=== PATIENT | male | born 1965 | race Caucasian/White ===

== ENCOUNTER 2016-08-31 19:54 | Emergency (ER) | payer MEDICAID ==
[2016-08-31 20:10] VITALS: BP 118/81
--- NOTE | 2016-08-31 20:14 | EDM.PDOC ---
ED HPI GENERAL MEDICAL PROBLEM - General Chief Complaint: Upper Extremity Injury/Pain Stated Complaint: LUMP IN ARM Time Seen by Provider: 08/31/16 20:00 Source of Information: Reports: Patient, Old Records History Limitations: Reports: No Limitations - History of Present Illness INITIAL COMMENTS - FREE TEXT/NARRATIVE: 51 yo male on Plavix presents with tender lump on his right forearm. Last night the lump was more prominent, today it has flattened out quite a bit. He does not recall injuring the area. Dr. Brady is his primary. Both arms are heavily tattooed. 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 (see below) (none) - Related Data Allergies Allergy/AdvReac Type Severity Reaction Status Date / Time No Known Allergies Allergy Verified 12/16/15 01:49 Home Meds: Home Meds Clopidogrel [Plavix] 75 mg PO DAILY 05/18/15 [History] Cyclobenzaprine [Flexeril] 10 mg PO TID PRN 05/18/15 [History] Gabapentin [Neurontin] 600 mg PO DAY 05/18/15 [History] Metoprolol Tartrate [Metoprolol Tartrate] 12.5 mg PO DAILY 05/18/15 [History] atorvaSTATin [Lipitor] 80 mg PO BEDTIME 05/18/15 [History] Pantoprazole [ProTONIX] 40 mg PO DAILY 06/16/15 [History] Hydrocodone/Acetaminophen [Vicodin 5-300 mg Tablet] 1 each PO Q4HR PRN #16 tablet 07/28/15 [Rx] Past Medical History Cardiovascular History: Reports: CAD, High Cholesterol, Hypertension, [place] Other Cardiovascular History: Heart attack in September 2014; two stents placed Musculoskeletal History: Reports: Back Pain, Chronic, Other (See Below) Other Musculoskeletal History: pt states pinched nerve in neck, states hx of injections to help with pain - Past Surgical History Cardiovascular Surgical History: Reports: Coronary Artery Stent Social & Family History - Family History Family Medical History: Unobtainable - Tobacco Use Smoking Status *Q: Current Every Day Smoker Years of Tobacco use: 30 Packs/Tins Daily: 1 Used Tobacco, but Quit: No Second Hand Smoke Exposure: Yes - Recreational Drug Use Recreational Drug Use: No Review of Systems - Review of Systems Review Of Systems: See Below Constitutional: Reports: No Symptoms Musculoskeletal: Reports: No Symptoms Skin: Reports: Lumps (Tender lump R forearm) ED EXAM, GENERAL - Physical Exam Exam: See Below Exam Limited By: No Limitations General Appearance: Alert, WD/WN, No Apparent Distress Skin Exam: Warm, Dry, Intact, No Rash, Other (Arm is heavily tattooed hiding any potential bruising or erythema. There is slightly swollen area to the mid anterior R forearm that is mildly tender with palpation. It is not warm to touch. No other lumps noted in the area. ) Lymphatic: No Adenopathy Departure - Departure Time of Disposition: 20:14 Disposition: Home, Self-Care 01 Condition: Good Clinical Impression: Injury of vein at forearm level Qualifiers: Encounter type: initial encounter Laterality: right Qualified Code(s): S55.201A - Unspecified injury of vein at forearm level, right arm, initial encounter - Discharge Information Referrals: Alexandre Brady MD [Primary Care Provider] - Additional Instructions: Moist heat to area. Recheck with your provider the end of the week if not better. Acetaminophen as needed for pain relief.
== END 2016-08-31 20:15 | disposition home or self-care (01) ==
LOC: FB.ED 19:54
DX: S55.20 Unspecified injury of vein at forearm level (principal); E78.00 Pure hypercholesterolemia, unspecified; I10 Essential (primary) hypertension; I25.2 Old myocardial infarction; F17.210 Nicotine dependence, cigarettes, uncomplicated; Z95.5 Presence of coronary angioplasty implant and graft; Z79.899 Other long term (current) drug therapy; X58.XXXA Exposure to other specified factors, initial encounter
CPT/HCPCS: 99283

== ENCOUNTER 2016-12-11 11:09 | Emergency (ER) | payer MEDICAID ==
[2016-12-11] MEDS ORDERED: Aspirin 81 MG Tab.Chew PO ONE (11:17)
[2016-12-11] MEDS ORDERED: Ketorolac 30 MG/ML SDV IM ONE (11:20)
--- NOTE | 2016-12-11 11:27 | EDM.PDOC ---
ED HPI GENERAL MEDICAL PROBLEM - General Chief Complaint: Chest Pain Stated Complaint: RT ARM AND JAW PAIN Time Seen by Provider: 12/11/16 11:15 Source of Information: Reports: Patient, Old Records History Limitations: Reports: No Limitations - History of Present Illness INITIAL COMMENTS - FREE TEXT/NARRATIVE: 51 yo male 1 ppd smoker with a pHx of CAD presents with R shoulder pain x 4 days. Gets relief with certain positions of that shoulder. Denies injury. Feels different from his heart attack. Family called the clinic and were told he should come to the ER. Not taking anything other than his usual meds for this pain. Describes pain like a burning pain, like a match it held to skin. No neck pain or limitation of ROM. 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 (see below) (none) Right Chest Pain Score (Numeric/FACES): 9 - Related Data Allergies Allergy/AdvReac Type Severity Reaction Status Date / Time No Known Allergies Allergy Verified 12/11/16 11:18 Home Meds: Home Meds Clopidogrel [Plavix] 75 mg PO DAILY 05/18/15 [History] Cyclobenzaprine [Flexeril] 10 mg PO TID PRN 05/18/15 [History] Gabapentin [Neurontin] 300 mg PO TID 05/18/15 [History] Metoprolol Tartrate [Metoprolol Tartrate] 12.5 mg PO DAILY 05/18/15 [History] atorvaSTATin [Lipitor] 80 mg PO BEDTIME 05/18/15 [History] Pantoprazole [ProTONIX] 40 mg PO DAILY 06/16/15 [History] Hydrocodone/Acetaminophen [Hydrocodon-Acetaminophen 5-325] 1 each PO BID PRN 04/18 [History] Aspirin 81 mg PO DAILY 12/11/16 [History] Past Medical History Cardiovascular History: Reports: CAD, High Cholesterol, Hypertension, [place] Other Cardiovascular History: Heart attack in September 2014; two stents placed Musculoskeletal History: Reports: Back Pain, Chronic, Other (See Below) Other Musculoskeletal History: pt states pinched nerve in neck, states hx of injections to help with pain - Past Surgical History Cardiovascular Surgical History: Reports: Coronary Artery Stent Social & Family History - Family History Family Medical History: Unobtainable - Tobacco Use Smoking Status *Q: Current Every Day Smoker Years of Tobacco use: 30 Packs/Tins Daily: 1 Used Tobacco, but Quit: No Second Hand Smoke Exposure: Yes - Recreational Drug Use Recreational Drug Use: No Review of Systems - Review of Systems Review Of Systems: See Below Constitutional: Reports: No Symptoms Nose: Reports: No Symptoms Mouth/Throat: Reports: No Symptoms Respiratory: Reports: No Symptoms Cardiovascular: Reports: No Symptoms GI/Abdominal: Reports: No Symptoms Genitourinary: Reports: No Symptoms Musculoskeletal: Reports: Joint Pain (R shoulder) Skin: Reports: No Symptoms Neurological: Reports: No Symptoms ED EXAM, GENERAL - Physical Exam Exam: See Below Exam Limited By: No Limitations General Appearance: Alert, WD/WN, No Apparent Distress Eye Exam: Bilateral Eye: Normal Inspection Ears: Normal External Exam, Normal Canal, Hearing Grossly Normal Ear Exam: Bilateral Ear: Auricle Normal, Canal Normal Nose: Normal Inspection, Normal Mucosa, No Blood Throat/Mouth: Normal Inspection, Normal Lips, Normal Oropharynx, Normal Voice, No Airway Compromise, Other (edentulous) Head: Atraumatic, Normocephalic Neck: Normal Inspection Respiratory/Chest: No Respiratory Distress, Lungs Clear, Normal Breath Sounds, No Accessory Muscle Use Cardiovascular: Regular Rate, Rhythm, No Edema GI/Abdominal: Normal Bowel Sounds, Soft, Non-Tender, No Distention Back Exam: Normal Inspection. No: CVA Tenderness (R), CVA Tenderness (L) Extremities: Normal Inspection, Normal Range of Motion, Non-Tender, No Pedal Edema Neurological: Alert, Oriented, CN II-XII Intact, Normal Cognition, Normal Gait, No Motor/Sensory Deficits Psychiatric: Normal Affect, Normal Mood Skin Exam: Warm, Dry, Intact, Normal Color, No Rash Lymphatic: No Adenopathy EKG INTERPRETATION EKG Date: 12/11/16 Time: 11:20 Rhythm: NSR Rate (Beats/Min): 70 [place]: Normal P-Wave: Present QRS: Normal ST-T: Normal QT: Normal Comparison: No Change EKG Interpretation Comments: L axis deviation Course - Vital Signs Last Recorded V/S: Last Vital Signs Temp 37.3 C 12/11/16 11:20 Pulse 81 12/11/16 11:20 Resp 16 12/11/16 12:34 BP 126/76 12/11/16 12:34 Pulse Ox 99 12/11/16 12:34 - Orders/Labs/Meds Orders: Active Orders 24 hr Category Date Time Status Cardiac Monitoring [RC] .As Directed Care 12/11/16 11:13 Active Shoulder Comp Rt [CR] Stat Exams 12/11/16 11:25 Taken EKG 12 Lead [EK] Routine Ther 12/11/16 11:13 Ordered Labs: Laboratory Tests 12/11/16 Range/Units 12:00 Troponin I < 0.01 L (0.02-0.06) NG/ML Meds: Medications Discontinued Medications Generic Name Dose Route Start Last Admin Trade Name Luca PRN Reason Stop Dose Admin Aspirin 324 mg 12/11/16 11:17 12/11/16 11:18 Aspirin PO 12/11/16 11:18 324 mg ONETIME ONE Administration Gabapentin 600 mg 12/11/16 11:56 12/11/16 12:33 Neurontin PO 12/11/16 11:57 600 mg NOW STA Administration Ketorolac Tromethamine 30 mg 12/11/16 11:20 12/11/16 11:28 Toradol IM 12/11/16 11:21 30 mg ONETIME ONE Administration - Radiology Interpretation Free Text/Narrative:: R shoulder [id number] Departure - Departure Time of Disposition: 12:50 Disposition: Home, Self-Care 01 Condition: Fair Clinical Impression: Neuropathic pain of upper extremity - Discharge Information Referrals: Alexandre Brady MD [Primary Care Provider] - Forms: ED Department Discharge - My Orders Last 24 Hours: My Active Orders 12/11/16 11:13 Cardiac Monitoring [RC] .As Directed EKG 12 Lead [EK] Routine 12/11/16 11:25 Shoulder Comp Rt [CR] Stat - Assessment/Plan Last 24 Hours: My Active Orders 12/11/16 11:13 Cardiac Monitoring [RC] .As Directed EKG 12 Lead [EK] Routine 12/11/16 11:25 Shoulder Comp Rt [CR] Stat
[2016-12-11] MEDS ORDERED: Gabapentin 600 MG Tab PO STA (11:56)
[2016-12-11 12:34] VITALS: BP 126/76
--- NOTE | 2016-12-11 15:02 | CR ---
INDICATION: Pain x4 days. No history of injury. RIGHT SHOULDER: Five images of the right shoulder in 4 projections revealed very minimal degenerative change at the AC and glenohumeral joints. The glenohumeral joint space appears to be well maintained. No evidence of a fracture or dislocation was identified. IMPRESSION: Very minimal degenerative change. Findings do not appear significant for age. If soft tissue injury or soft tissue abnormality is suspected clinically, MRI may be helpful. MTDD
== END 2016-12-11 12:55 | disposition home or self-care (01) ==
LOC: FB.ED 11:09
DX: M79.2 Neuralgia and neuritis, unspecified (principal); I25.10 Atherosclerotic heart disease of native coronary artery without angina pectoris; E78.00 Pure hypercholesterolemia, unspecified; I10 Essential (primary) hypertension; I25.2 Old myocardial infarction; F17.210 Nicotine dependence, cigarettes, uncomplicated
CPT/HCPCS: 36415; 73030; 84484; 93005; 96374; 99285; A9270; J1885; 96372

== ENCOUNTER 2017-01-10 01:22 | Emergency (ER) | payer MEDICAID ==
--- NOTE | 2017-01-10 01:39 | EDM.PDOC ---
ED HPI GENERAL MEDICAL PROBLEM - General Chief Complaint: Neck Problem Stated Complaint: BURNING NECK/ARM PAIN Time Seen by Provider: 01/10/17 01:30 Source of Information: Reports: Patient, Old Records History Limitations: Reports: No Limitations - History of Present Illness INITIAL COMMENTS - FREE TEXT/NARRATIVE: Frank comes to [facility] ED with relapse of chronic neck pain with radiation into the RUE. Pain in lancinating, associated with some tingling in the R hand, aggravated by lateral bending of the neck. He did have an evaluation including MRI of cervical spine about 2 years ago, and was advised to see a neurosurgeon, but has not proceeded with this guidance. - Related Data Allergies Allergy/AdvReac Type Severity Reaction Status Date / Time No Known Allergies Allergy Verified 12/11/16 11:18 Home Meds: Home Meds Clopidogrel [Plavix] 75 mg PO DAILY 05/18/15 [History] Cyclobenzaprine [Flexeril] 10 mg PO TID PRN 05/18/15 [History] Gabapentin [Neurontin] 300 mg PO TID 05/18/15 [History] Metoprolol Tartrate [Metoprolol Tartrate] 12.5 mg PO DAILY 05/18/15 [History] atorvaSTATin [Lipitor] 80 mg PO BEDTIME 05/18/15 [History] Pantoprazole [ProTONIX] 40 mg PO DAILY 06/16/15 [History] Hydrocodone/Acetaminophen [Hydrocodon-Acetaminophen 5-325] 1 each PO BID PRN 04/18 [History] Acetaminophen/HYDROcodone [[place] 325-5 MG] 1 - 2 tab PO Q6H PRN #20 tab [Rx] Aspirin 81 mg PO DAILY 12/11/16 [History] Gabapentin [Neurontin] 600 mg PO TID PRN #30 tab 12/11/16 [Rx] Past Medical History Cardiovascular History: Reports: CAD, High Cholesterol, Hypertension, [place] Other Cardiovascular History: Heart attack in September 2014; two stents placed Musculoskeletal History: Reports: Back Pain, Chronic, Other (See Below) Other Musculoskeletal History: pt states pinched nerve in neck, states hx of injections to help with pain - Past Surgical History Cardiovascular Surgical History: Reports: Coronary Artery Stent Social & Family History - Family History Family Medical History: Unobtainable - Tobacco Use Smoking Status *Q: Current Every Day Smoker Years of Tobacco use: 30 Packs/Tins Daily: 1 Used Tobacco, but Quit: No Second Hand Smoke Exposure: Yes - Caffeine Use Caffeine Use: Reports: Soda - Recreational Drug Use Recreational Drug Use: No ED ROS GENERAL - Review of Systems Review Of Systems: ROS reveals no pertinent complaints other than HPI. ED EXAM, GENERAL - Physical Exam Exam: See Below Exam Limited By: No Limitations General Appearance: Alert, WD/WN, Moderate Distress Eye Exam: Bilateral Eye: Normal Inspection, PERRL Ears: Normal External Exam Nose: Normal Inspection Throat/Mouth: Normal Inspection, Normal Voice Head: Normocephalic Neck: Normal Inspection, Limited Range of Motion, Tender Lateral (right posterior neck) Respiratory/Chest: Lungs Clear, No Accessory Muscle Use Cardiovascular: Regular Rate, Rhythm Back Exam: Normal Inspection Extremities: Normal Inspection, Limited Range of Motion (RUE) Neurological: Alert, Oriented, CN II-XII Intact, Normal Gait, Sensory/Motor Deficit (C5-6 distribution on R) Psychiatric: Normal Affect, Anxious Skin Exam: Warm, Dry Lymphatic: No Adenopathy Course - Vital Signs Text/Narrative:: Following assession at the [facility] ED, Frank was administered Toradol 60 mg IM for pain relief. Departure - Departure Time of Disposition: 01:45 Disposition: Home, Self-Care 01 Condition: Fair Clinical Impression: Neuropathic pain of upper extremity - Discharge Information Forms: ED Department Discharge - Problem List & Annotations (1) Neuropathic pain of upper extremity SNOMED Code(s): 923426324 Code(s): G56.90 - UNSPECIFIED MONONEUROPATHY OF UNSPECIFIED UPPER LIMB Status: Acute Annotation/Comment:: Follow up with PCP or Neurosurgeon regarding further management. - Problem List Review Problem List Initiated/Reviewed/Updated: Yes - Assessment/Plan Plan: Follow up with PCP.
[2017-01-10] MEDS ORDERED: Ketorolac 60 MG/2 ML SDV ONE (01:41)
[2017-01-10] MEDS ORDERED: Ketorolac 60 MG/2 ML SDV IM ONE (01:42)
[2017-01-12 11:35] VITALS: BP 135/97
== END 2017-01-10 02:03 | disposition home or self-care (01) ==
LOC: FB.ED 01:22
DX: G56.91 Unspecified mononeuropathy of right upper limb (principal); F17.210 Nicotine dependence, cigarettes, uncomplicated; I10 Essential (primary) hypertension; E78.5 Hyperlipidemia, unspecified; Z79.82 Long term (current) use of aspirin
CPT/HCPCS: 96372; 99282; J1885

== ENCOUNTER 2018-12-18 15:11 | Emergency (ER) | payer SELFPAY ==
--- NOTE | 2018-12-18 15:18 | EDM.PDOC ---
ED HPI GENERAL MEDICAL PROBLEM - General Stated Complaint: CHEST PAIN Time Seen by Provider: 12/18/18 15:17 Source of Information: Reports: Patient History Limitations: Reports: No Limitations - History of Present Illness INITIAL COMMENTS - FREE TEXT/NARRATIVE: 53-year-old male with previous VT and angioplasty with stents who reports onset of a sharp pain in his left chest on Thursday it seemed to come and go. It lasted about 5 minutes when he came and seemed to be worse with palpation and with deep breath. He also has been having some back pain which is chronic but seems to be a little worse than usual for him. Beginning at about 1 PM today he developed a burning across his entire chest that seemed to cause some tightness into his neck and into his right shoulder. He had some mild nausea associated with this but no vomiting. He still has the reproducible pain in his left chest with palpation, movement and deep breath but the pain in his chest that is a burning pain is new and does not seem to be made better or worse by anything. He has been eating and drinking normally. He apparently was at work came to the walk-in clinic to be evaluated and was sent here for further evaluation he does feel somewhat short of breath now. He has had no cough. He has had no leg swelling. The burning pain in his chest as rated by him as a 5-6/10. The back pain is somewhat spasm-like and goes to an 8-9/10. He does report that he has not been taking any of his medications. "Because I can't afford them." There are no other associated signs or symptoms. There are no other modifying factors. Onset: Other (Onset of sharp chest pain on Thursday of last week that has been intermittent. Onset of burning pain across his entire chest at 1 PM today that has been steady and constant) Location: Reports: Neck, Chest, Back Quality: Reports: Burning, Sharp, Other (Tightness) Severity: Moderate Improves with: Reports: None Worsens with: Reports: None (Except as above) Context: Reports: Other (As above) Associated Symptoms: Reports: Chest Pain, Shortness of Breath, Weakness, Other ( Dizziness. 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) Chest Pain Score (Numeric/FACES): 1 Back Pain Score (Numeric/FACES): 1 - Related Data Allergies Allergy/AdvReac Type Severity Reaction Status Date / Time No Known Allergies Allergy Verified 12/18/18 17:06 Home Meds: Home Meds Clopidogrel [Plavix] 75 mg PO DAILY 05/18/15 [History] Cyclobenzaprine [Flexeril] 10 mg PO TID PRN 05/18/15 [History] Gabapentin [Neurontin] 300 mg PO TID 05/18/15 [History] Metoprolol Tartrate 25 mg PO DAILY 05/18/15 [History] atorvaSTATin [Lipitor] 40 mg PO BEDTIME 05/18/15 [History] Pantoprazole [ProTONIX] 40 mg PO DAILY 06/16/15 [History] Acetaminophen/HYDROcodone [[place] 325-5 MG] 1 - 2 tab PO Q6H PRN #20 tab [Rx] Aspirin 81 mg PO DAILY 12/11/16 [History] Acetaminophen [Pain & Fever] 1 - 2 tab PO QID PRN 01/12/17 [History] Nicotine [Nicotine Patch] 1 patch TD DAILY 07/14/17 [History] Triamcinolone Acetonide [Kenalog 0.1% Crm] 1 applic TOP TID PRN 07/14/17 [ History] traMADol [Ultram] 50 mg PO Q4H PRN 07/14/17 [History] Past Medical History Cardiovascular History: Reports: CAD, High Cholesterol, Hypertension, VT Other Cardiovascular History: Heart attack in September 2014; two stents placed Musculoskeletal History: Reports: Back Pain, Chronic, Other (See Below) Other Musculoskeletal History: pt states pinched nerve in neck, states hx of injections to help with pain Psychiatric History: Reports: Addiction Endocrine/Metabolic History: Reports: None - Past Surgical History Cardiovascular Surgical History: Reports: Coronary Artery Stent (Stents 3) Musculoskeletal Surgical History: Reports: Shoulder Surgery (For removal of cyst on right shoulder) Social & Family History - Tobacco Use Smoking Status *Q: Current Every Day Smoker - Caffeine Use Caffeine Use: Reports: Soda - Alcohol Use Alcohol Use History: Yes Alcohol Use in Last Twelve Months: No Alcohol Use Comment: 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 - Recreational Drug Use Recreational Drug Use: No - Living Situation & Occupation Occupation: Employed (Works at [employer]) ED ROS GENERAL - Review of Systems Review Of Systems: See Below Constitutional: Reports: No Symptoms HEENT: Reports: No Symptoms Respiratory: Reports: Shortness of Breath (Feels somewhat short of breath), Cough (Chronic cough) Cardiovascular: Reports: Chest Pain (As described above) GI/Abdominal: Reports: Nausea. Denies: Vomiting : Reports: No Symptoms Musculoskeletal: Reports: Neck Pain Skin: Reports: No Symptoms Neurological: Reports: No Symptoms Hematologic/Lymphatic: Reports: No Symptoms Immunologic: Reports: No Symptoms ED EXAM, GENERAL - Physical Exam Exam: See Below Exam Limited By: No Limitations General Appearance: Alert, WD/WN, Moderate Distress Eye Exam: Bilateral Eye: EOMI, Normal Inspection, PERRL Ears: Normal External Exam, Hearing Grossly Normal Ear Exam: Bilateral Ear: Auricle Normal Nose: Normal Inspection, Normal Mucosa, No Blood Throat/Mouth: Normal Inspection, Normal Oropharynx, Normal Voice, No Airway Compromise Head: Atraumatic, Normocephalic Neck: Normal Inspection, Supple, Non-Tender, Full Range of Motion Respiratory/Chest: No Respiratory Distress, Lungs Clear, Normal Breath Sounds, No Accessory Muscle Use, Other (Tenderness of her left parasternal chest. No crepitus. Redness.) Cardiovascular: Normal Peripheral Pulses, Regular Rate, Rhythm, No JVD Peripheral Pulses: 2+: Radial (L), Radial (R) GI/Abdominal: Normal Bowel Sounds, Soft, Non-Tender, No Organomegaly, No Mass Back Exam: Normal Inspection, Full Range of Motion Extremities: Normal Inspection, Normal Range of Motion, Non-Tender, No Pedal Edema, Normal Capillary Refill Neurological: Alert, Oriented, CN II-XII Intact, No Motor/Sensory Deficits Skin Exam: Warm, Dry, Intact, Normal Color, No Rash EKG INTERPRETATION EKG Date: 12/18/18 Time: 15:11 Rhythm: NSR Rate (Beats/Min): 68 [place]: LAD-Left [place] Deviation (LAFB) P-Wave: Present QRS: Normal ST-T: Normal QT: Normal Comparison: No Change (No change from EKG performed on 12/11/2016.) EKG Interpretation Comments: Repeat EKG on 12/18/2018 at 5:43 PM: Normal sinus rhythm with a left anterior fascicular block and a rate of 59. He does have T-wave flattening in V4 through V6 and all of his inferior leads which is different than the previous EKG performed today. Course - Vital Signs Last Recorded V/S: Last Vital Signs Temp 36.6 C 12/18/18 15:13 Pulse 59 L 12/18/18 15:13 Resp 18 12/18/18 15:13 BP 119/94 H 12/18/18 20:12 Pulse Ox 96 12/18/18 15:13 - Orders/Labs/Meds Orders: Active Orders 24 hr Category Date Time Status EKG Documentation Completion [RC] ASDIRECTED Care 12/18/18 15:43 Active EKG Documentation Completion [RC] ASDIRECTED Care 12/18/18 17:44 Active Ang Chest [CT] Stat Exams 12/18/18 16:58 Taken Chest 1V Frontal [CR] Stat Exams 12/18/18 15:43 Taken Heparin Sodium/0.45% NaCl [Heparin 25,000 Units in 1/2 Med 12/18/18 19:00 Active NS 500 ML] 500 ml IV ASDIRECTED Sodium Chloride 0.9% [Normal Saline] 1,000 ml Med 12/18/18 15:45 Active IV ASDIRECTED Sodium Chloride 0.9% [Saline Flush] Med 12/18/18 15:43 Active 10 ml FLUSH ASDIRECTED PRN Peripheral IV Insertion Adult [OM.PC] Routine Oth 12/18/18 15:43 Ordered EKG 12 Lead [EK] Routine Ther 12/18/18 15:42 Ordered EKG 12 Lead [EK] Routine Ther 12/18/18 17:44 Ordered Medication Orders Sodium Chloride (Normal Saline) 1,000 mls @ 100 mls/hr IV ASDIRECTED [facility] Last Admin: 12/18/18 16:05 Dose: 100 mls/hr Heparin Sodium/Sodium Chloride (Heparin 25,000 Units In 1/2 Ns 500 Ml) 500 mls @ 16 mls/hr IV ASDIRECTED [facility] Last Admin: 12/18/18 19:28 Dose: 16 mls/hr Sodium Chloride (Saline Flush) 10 ml FLUSH ASDIRECTED PRN PRN Reason: Keep Vein Open Labs: Laboratory Tests 12/18/18 12/18/18 12/18/18 Range/Units 15:55 15:55 15:55 WBC 7.9 (4.5-12.0) X10-3/uL RBC 4.10 L (4.30-5.75) x10(6)uL Hgb 12.8 L (13.5-17.8) g/dL Hct 36.8 (30.0-51.3) % MCV 89.9 (80-96) fL MCH 31.2 (27.7-33.6) pg MCHC 34.7 (32.2-35.4) g/dL RDW 12.8 (11.5-15.5) % Plt Count 326 (125-369) X10(3)uL MPV 7.4 (7.4-10.4) fL Neut % (Auto) 49.9 (46-82) % Lymph % (Auto) 37.4 H (13-37) % [place] % (Auto) 9.4 (4-12) % Eos % (Auto) 3 (1.0-5.0) % Baso % (Auto) 1 (0-2) % Neut # (Auto) 4.0 (1.6-8.3) # Lymph # (Auto) 3.0 (0.6-5.0) # [place] # (Auto) 0.7 (0.0-1.3) # Eos # (Auto) 0.2 (0.0-0.8) # Baso # (Auto) 0.0 (0.0-0.2) # PT 9.4 (8.7-11.1) INR 0.97 (0.89-1.13) APTT 25.4 (24.4-33.2) SECONDS D-Dimer, Quantitative 0.77 H (0.0-0.59) mg/LFEU Sodium 141 (135-145) mmol/L Potassium 3.3 L (3.5-5.3) mmol/L Chloride 105 (100-110) mmol/L Carbon Dioxide 27 (21-32) mmol/L BUN 3 L (7-18) mg/dL Creatinine 0.9 (0.70-1.30) mg/dL Est Cr Clr Drug Dosing TNP Estimated GFR (MDRD) > 60 (>60) BUN/Creatinine Ratio 3.3 L (9-20) Glucose 88 (80-116) mg/dL Calcium 8.3 L (8.6-10.2) mg/dL Magnesium (1.8-2.5) mg/dL Total Bilirubin 0.3 (0.1-1.3) mg/dL AST 15 (5-25) IU/L ALT 15 (12-36) U/L Alkaline Phosphatase 59 (56-112) IU/L Troponin I (<0.017-0.056) ng/mL Total Protein 6.3 (6.0-8.0) g/dL Albumin 3.2 L (3.5-5.2) g/dL Globulin 3.1 g/dL Albumin/Globulin Ratio 1.0 12/18/18 12/18/18 Range/Units 15:55 15:55 WBC (4.5-12.0) X10-3/uL RBC (4.30-5.75) x10(6)uL Hgb (13.5-17.8) g/dL Hct (30.0-51.3) % MCV (80-96) fL MCH (27.7-33.6) pg MCHC (32.2-35.4) g/dL RDW (11.5-15.5) % Plt Count (125-369) X10(3)uL MPV (7.4-10.4) fL Neut % (Auto) (46-82) % Lymph % (Auto) (13-37) % [place] % (Auto) (4-12) % Eos % (Auto) (1.0-5.0) % Baso % (Auto) (0-2) % Neut # (Auto) (1.6-8.3) # Lymph # (Auto) (0.6-5.0) # [place] # (Auto) (0.0-1.3) # Eos # (Auto) (0.0-0.8) # Baso # (Auto) (0.0-0.2) # PT (8.7-11.1) INR (0.89-1.13) APTT (24.4-33.2) SECONDS D-Dimer, Quantitative (0.0-0.59) mg/LFEU Sodium (135-145) mmol/L Potassium (3.5-5.3) mmol/L Chloride (100-110) mmol/L Carbon Dioxide (21-32) mmol/L BUN (7-18) mg/dL Creatinine (0.70-1.30) mg/dL Est Cr Clr Drug Dosing Estimated GFR (MDRD) (>60) BUN/Creatinine Ratio (9-20) Glucose (80-116) mg/dL Calcium (8.6-10.2) mg/dL Magnesium 2.0 (1.8-2.5) mg/dL Total Bilirubin (0.1-1.3) mg/dL AST (5-25) IU/L ALT (12-36) U/L Alkaline Phosphatase (56-112) IU/L Troponin I < 0.017 L (<0.017-0.056) ng/mL Total Protein (6.0-8.0) g/dL Albumin (3.5-5.2) g/dL Globulin g/dL Albumin/Globulin Ratio Meds: Medications Generic Name Dose Route Start Last Admin Trade Name [place] PRN Reason Stop Dose Admin Sodium Chloride 1,000 mls @ 100 mls/hr 12/18/18 15:45 12/18/18 16:05 Normal Saline IV 100 mls/hr ASDIRECTED RENAY Administration Heparin Sodium/Sodium Chloride 500 mls @ 16 mls/hr 12/18/18 19:00 12/18/18 19 :28 Heparin 25,000 Units In 1/2 Ns 500 Ml IV 16 mls/hr ASDIRECTED RENAY Administration Sodium Chloride 10 ml 12/18/18 15:43 Saline Flush FLUSH ASDIRECTED PRN Keep Vein Open Discontinued Medications Generic Name Dose Route Start Last Admin Trade Name Luca PRN Reason Stop Dose Admin Hydrocodone Bitart/Acetaminophen 2 tab 12/18/18 17:40 12/18/18 18:45 [place] 325-5 Mg PO 12/18/18 17:41 2 tab ONETIME ONE Administration Aspirin 324 mg 12/18/18 15:44 12/18/18 15:45 Aspirin PO 12/18/18 15:45 324 mg ONETIME ONE Administration Heparin Sodium (Porcine) 4,000 units 12/18/18 19:01 12/18/18 19:27 Heparin Sodium IVPUSH 12/18/18 19:02 4,000 units ONETIME ONE Administration Iopamidol 100 ml 12/18/18 17:08 12/18/18 17:30 Isovue-370 (76%) IV 12/18/18 17:09 70 ml . DIRECTED ONE Administration Ketorolac Tromethamine 30 mg 12/18/18 15:45 12/18/18 16:03 Toradol IVPUSH 12/18/18 15:46 30 mg ONETIME ONE Administration Nitroglycerin 0.4 mg 12/18/18 15:44 12/18/18 17:47 Nitrostat SL 0.4 mg Q5M PRN Administration Chest Pain Nitroglycerin 1 gm 12/18/18 20:05 12/18/18 20:13 Nitro-Bid 2% TOP 12/18/18 20:06 1 gm ONETIME ONE Administration Nitroglycerin 0.4 mg 12/18/18 20:05 12/18/18 20:12 Nitrostat SL 12/18/18 20:06 0.4 mg ONETIME ONE Administration Potassium Chloride 40 meq 12/18/18 17:00 Klor-Con PO ASDIRECTED RENAY Potassium Chloride Confirm 12/18/18 19:00 12/18/18 19:30 Klor-Con M20 Administered 12/18/18 19:01 Not Given Dose 40 meq .ROUTE .STK-MED ONE Potassium Chloride 40 meq 12/18/18 19:07 12/18/18 19:31 Klor-Con M20 PO 12/18/18 19:08 40 meq ONETIME ONE Administration - Radiology Interpretation Free Text/Narrative:: Portable chest x-ray shows no acute disease. CTA of chest showed no evidence of pulmonary embolus. There was subsegmental atelectasis or scarring in the right lower lobe base and right middle lobe medial segment. This was per the [facility] radiologist. - Re-Assessments/Exams Free Text/Narrative Re-Assessment/Exam: 12/18/18 16:23: Patient's burning chest pain completely resolved after 2 sublingual nitroglycerin. He is vitally stable. 12/18/18 16:55: Patient's d-dimer is 0.77 which is slightly elevated. Secondary to his sharp chest pain and the elevated d-dimer, I am sending him for a CTA of his chest. He has no more burning in his chest. He does have pain in his back that he rates is his chronic back pain. 12/18/18 17:40: The patient is back from CTA of his chest. The results are pending at this time. He does report continued sharp pain and spasm-like pain in his back that is his usual back pain but he also reports that the burning in his chest has come back and rates that as a 3-4/10. I will have his EKG repeated and I will give him another nitroglycerin sublingual. I had already ordered hydrocodone for his back pain. 12/18/18 18:35: The patient is chest pain-free now he still has his back pain and is yet to get his potassium or his hydrocodone. The repeat EKG did show flattening of his T waves laterally and some T-wave an inversion inferior leads. With these dynamic EKG changes, although subtle, and his chest pain and his known coronary artery disease, I feel that he will need admission and would best be served at a facility were cardiology and cardiology specially services are available. I discussed this with the patient and he would that I discuss his case with the doctors at [facility] in [place]. 12/18/18 18:55: I have discussed the patient's case with Dr. Simpson, ED physician at [facility] in [place], and she has agreed to accept the patient in transfer. I we will give the patient a heparin bolus and start the patient on a heparin drip via ACS guidelines. We will continue close cardiac monitoring and the patient remains chest pain-free at this point and will be transferred to [facility] via ambulance for direct admission. 12/18/18 20:15: Patient had recurrence of chest burning. He will be given nitroglycerin 1 sublingual and 1 inch of nitro paste will be placed on his chest. EMS has arrived and will be transporting the patient. Departure - Departure Time of Disposition: 20:18 Disposition: DC/Tfer to Acute Hospital 02 Reason for Transfer *Q: Other (Patient with EKG changes and need for cardiology and potentially cardiology specially services.) Condition: Fair (Guarded) Clinical Impression: Acute coronary syndrome, Acute electrocardiogram changes Chronic back pain Qualifiers: Back pain location: low back pain Back pain laterality: midline Sciatica presence: without sciatica Qualified Code(s): M54.5 - Low back pain Referrals: Alexandre Brady MD [Primary Care Provider] - Critical Care Note - Critical Care Note Total Time (mins): 95 Comments: Total critical care time spent with the patient was 95 minutes. - My Orders Last 24 Hours: My Active Orders 12/18/18 15:42 EKG 12 Lead [EK] Routine 12/18/18 15:43 EKG Documentation Completion [RC] ASDIRECTED Chest 1V Frontal [CR] Stat Sodium Chloride 0.9% [Saline Flush] 10 ml FLUSH ASDIRECTED PRN Peripheral IV Insertion Adult [OM.PC] Routine 12/18/18 15:45 Sodium Chloride 0.9% [Normal Saline] 1,000 ml IV ASDIRECTED 12/18/18 16:58 Ang Chest [CT] Stat 12/18/18 17:44 EKG Documentation Completion [RC] ASDIRECTED EKG 12 Lead [EK] Routine 12/18/18 19:00 Heparin Sodium/0.45% NaCl [Heparin 25,000 Units in 1/2 NS 500 ML] 500 ml IV ASDIRECTED - Assessment/Plan Last 24 Hours: My Active Orders 12/18/18 15:42 EKG 12 Lead [EK] Routine 12/18/18 15:43 EKG Documentation Completion [RC] ASDIRECTED Chest 1V Frontal [CR] Stat Sodium Chloride 0.9% [Saline Flush] 10 ml FLUSH ASDIRECTED PRN Peripheral IV Insertion Adult [OM.PC] Routine 12/18/18 15:45 Sodium Chloride 0.9% [Normal Saline] 1,000 ml IV ASDIRECTED 12/18/18 16:58 Ang Chest [CT] Stat 12/18/18 17:44 EKG Documentation Completion [RC] ASDIRECTED EKG 12 Lead [EK] Routine 12/18/18 19:00 Heparin Sodium/0.45% NaCl [Heparin 25,000 Units in 1/2 NS 500 ML] 500 ml IV ASDIRECTED
[2018-12-18] MEDS ORDERED: Sodium Chloride 0.9% 10 ML Syringe FLUSH PRN (15:43)
[2018-12-18] MEDS ORDERED: Aspirin 81 MG Tab.Chew PO ONE (15:44)
[2018-12-18] MEDS ORDERED: Sodium Chloride 0.9% 1,000 ML IV SCH (15:45)
[2018-12-18] MEDS ORDERED: Ketorolac 30 MG/ML SDV IVPUSH ONE (15:45)
[2018-12-18] MEDS: Nitroglycerin 0.4 MG Tab.SL SL PRN ×3 (16:02→17:47)
[2018-12-18 16:49] VITALS: PULSE 59
[2018-12-18] MEDS ORDERED: Potassium Chloride 20 MEQ Packet PO SCH (17:00)
[2018-12-18] MEDS ORDERED: Iopamidol 755 Mg/ML 75 ML Bottle IV ONE (17:05)
[2018-12-18] MEDS ORDERED: Iopamidol 755 Mg/ML 100 ML Bottle IV ONE (17:08)
[2018-12-18] MEDS ORDERED: Acetaminophen/HYDROcodone 325-5 MG Tab PO ONE (17:40)
[2018-12-18] MEDS ORDERED: Heparin Sodium/0.45% NaCl 500 ML IV SCH (19:00)
[2018-12-18] MEDS ORDERED: Potassium Chloride 20 MEQ Tab.ER ONE (19:00)
[2018-12-18] MEDS ORDERED: Heparin Sodium 5,000 Units/ML Vial IVPUSH ONE (19:01)
[2018-12-18] MEDS ORDERED: Potassium Chloride 20 MEQ Tab.ER PO ONE (19:07)
[2018-12-18] MEDS ORDERED: Nitroglycerin 2% Oint 1 GM UD Packet TOP ONE (20:05)
[2018-12-18] MEDS ORDERED: Nitroglycerin 0.4 MG Tab.SL SL ONE (20:05)
[2018-12-18 20:13] VITALS: BP 119/94
--- NOTE | 2018-12-21 08:46 | CR ---
INDICATION: Chest pain. CHEST: AP upright portable view of the chest, 12/18/18, was compared with 12/15 and 07/28/15 and revealed slightly increased heart size, likely on the basis of slightly less complete inspiratory effort on the current study. The heart, however, does appear to be within normal limits in size overall. The aorta is only minimally tortuous. Overlying EKG leads are noted. An active infiltrate or effusion was not identified. IMPRESSION: No acute process, stable chest. MTDD
== END 2018-12-18 20:20 ==
LOC: FB.ED 15:11
DX: I24.9 Acute ischemic heart disease, unspecified (principal); M54.5 Low back pain; R94.31 Abnormal electrocardiogram [ECG] [EKG]; I10 Essential (primary) hypertension; I25.2 Old myocardial infarction; E78.5 Hyperlipidemia, unspecified; I25.10 Atherosclerotic heart disease of native coronary artery without angina pectoris; F17.200 Nicotine dependence, unspecified, uncomplicated; Z79.02 Long term (current) use of antithrombotics/antiplatelets; Z79.899 Other long term (current) drug therapy; Z95.5 Presence of coronary angioplasty implant and graft
CPT/HCPCS: 36415; 71045; 71275; 80053; 83735; 84484; 85025; 85379; 85610; 85730; 93005; 96361; 96365; 96375; 99285; A9270; J1644; J1885; J7030; Q9967

== ENCOUNTER 2019-04-30 07:45 | Emergency (ER) | payer MEDICAID, OTHER ==
[2019-04-30] MEDS ORDERED: Sodium Chloride 0.9% 10 ML Syringe FLUSH PRN (08:19)
[2019-04-30] MEDS ORDERED: Aspirin 81 MG Tab.Chew PO ONE (08:19)
--- NOTE | 2019-04-30 08:22 | EDM.PDOC ---
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 Pain described as burning and sharp, similar to when he had an [place] @4 yrs ago, 3 stents placed. Associated with mild SOB and nausea. Patient continues to smoke cigarettes, but denies alcohol or drug use. Onset Date: 04/30/19 Onset Time: 06:00 Location: Reports: Chest Quality: Reports: Burning, Sharp Severity: Moderate left side chest Pain Score (Numeric/FACES): 6 - Related Data Allergies Allergy/AdvReac Type Severity Reaction Status Date / Time No Known Allergies Allergy Verified 12/18/18 17:06 Home Meds: Home Meds Clopidogrel [Plavix] 75 mg PO DAILY 05/18/15 [History] Cyclobenzaprine [Flexeril] 10 mg PO TID PRN 05/18/15 [History] Gabapentin [Neurontin] 300 mg PO TID 05/18/15 [History] Metoprolol Tartrate 25 mg PO DAILY 05/18/15 [History] atorvaSTATin [Lipitor] 40 mg PO BEDTIME 05/18/15 [History] Pantoprazole [ProTONIX] 40 mg PO DAILY 06/16/15 [History] Acetaminophen/HYDROcodone [Purmela 325-5 MG] 1 - 2 tab PO Q6H PRN #20 tab [Rx] Aspirin 81 mg PO DAILY 12/11/16 [History] Acetaminophen [Pain & Fever] 1 - 2 tab PO QID PRN 01/12/17 [History] Triamcinolone Acetonide [Kenalog 0.1% Crm] 1 applic TOP TID PRN 07/14/17 [ History] Past Medical History HEENT History: Reports: None Cardiovascular History: Reports: CAD, High Cholesterol, Hypertension, [place] Other Cardiovascular History: Heart attack in September 2014; two stents placed Respiratory History: Reports: None Gastrointestinal History: Reports: None Genitourinary History: Reports: None [employer] History: Reports: None Musculoskeletal History: Reports: Back Pain, Chronic, Other (See Below) Other Musculoskeletal History: pt states pinched nerve in neck, states hx of injections to help with pain Neurological History: Reports: Other (See Below) Other Neuro History: Neck and back problems. Psychiatric History: Reports: Addiction Endocrine/Metabolic History: Reports: None Hematologic History: Reports: None Immunologic History: Reports: Immunosuppression Oncologic (Cancer) History: Reports: None Dermatologic History: Reports: None - Past Surgical History Cardiovascular Surgical History: Reports: Coronary Artery Stent (Stents 3) Musculoskeletal Surgical History: Reports: Shoulder Surgery (For removal of cyst on right shoulder) Social & Family History - Family History Family Medical History: Unobtainable - Tobacco Use Smoking Status *Q: Current Every Day Smoker Tobacco Use Within Last Twelve Months: Cigarettes - Caffeine Use Caffeine Use: Reports: Soda Other Caffeine Use: daily - Alcohol Use Alcohol Use History: No - Recreational Drug Use Recreational Drug Use: No - Living Situation & Occupation Occupation: Employed (Works at [employer] ED ROS GENERAL - Review of Systems Review Of Systems: Comprehensive ROS is negative, except as noted in HPI. ED EXAM, GENERAL - Physical Exam Exam: See Below Exam Limited By: No Limitations General Appearance: Alert, WD/WN, No Apparent Distress Ears: Normal External Exam Nose: Normal Inspection Throat/Mouth: No Airway Compromise Head: Atraumatic, Normocephalic Neck: Full Range of Motion Respiratory/Chest: No Respiratory Distress, No Accessory Muscle Use, Chest Non- Tender, Wheezing (few scattered) Cardiovascular: Regular Rate, Rhythm, No Edema, No Murmur, Other (Heart score = 4) GI/Abdominal: Soft, Non-Tender, No Distention Extremities: Normal Inspection, Normal Range of Motion, Non-Tender, No Pedal Edema Neurological: Alert, Normal Cognition Psychiatric: Normal Affect, Normal Mood Skin Exam: Warm, Dry, Intact EKG INTERPRETATION EKG Date: 04/30/19 Time: 07:54 Rhythm: NSR Rate (Beats/Min): 63 [place]: LAD-Left [place] Deviation P-Wave: Present QRS: Normal ST-T: Normal QT: Normal Comparison: No Change (12/18/18) Course - Vital Signs Last Recorded V/S: Last Vital Signs Temp 36.1 C 04/30/19 07:45 Pulse 59 L 04/30/19 10:39 Resp 13 04/30/19 10:39 BP 113/68 04/30/19 10:39 Pulse Ox 98 04/30/19 10:39 - Orders/Labs/Meds Orders: Active Orders 24 hr Category Date Time Status EKG Documentation Completion [RC] ASDIRECTED Care 04/30/19 08:16 Active RT Aerosol Therapy [RC] ASDIRECTED Care 04/30/19 09:41 Active Ang Chest [CT] Stat Exams 04/30/19 08:59 Taken CXR [Chest 1V Frontal] [CR] Stat Exams 04/30/19 08:16 Stop Req Heparin Sodium/0.45% NaCl [Heparin 25,000 Units in 1/2 Med 04/30/19 12:00 Active NS 500 ML] 500 ml IV ASDIRECTED Sodium Chloride 0.9% [Saline Flush] Med 04/30/19 08:19 Active 10 ml FLUSH ASDIRECTED PRN Saline Lock Insert [OM.PC] Routine Oth 04/30/19 08:19 Ordered EKG 12 Lead [EK] Stat Ther 04/30/19 08:15 Ordered Medication Orders Heparin Sodium/Sodium Chloride (Heparin 25,000 Units In 1/2 Ns 500 Ml) 500 mls @ 16 mls/hr IV ASDIRECTED RENAY Last Admin: 04/30/19 12:12 Dose: 16 mls/hr Sodium Chloride (Saline Flush) 10 ml FLUSH ASDIRECTED PRN PRN Reason: Keep Vein Open Last Admin: 04/30/19 07:50 Dose: 10 ml Labs: Laboratory Tests 04/30/19 04/30/19 04/30/19 Range/Units 08:25 08:25 08:25 WBC 6.1 (4.5-12.0) X10-3/uL RBC 4.43 (4.30-5.75) x10(6)uL Hgb 13.1 L (13.5-17.8) g/dL Hct 39.4 (30.0-51.3) % MCV 88.9 (80-96) fL MCH 29.5 (27.7-33.6) pg MCHC 33.2 (32.2-35.4) g/dL RDW 12.3 (11.5-15.5) % Plt Count 389 H (125-369) X10(3)uL MPV 6.9 L (7.4-10.4) fL Neut % (Auto) 52.8 (46-82) % Lymph % (Auto) 35.6 (13-37) % Nolan % (Auto) 6.6 (4-12) % Eos % (Auto) 4 (1.0-5.0) % Baso % (Auto) 1 (0-2) % Neut # (Auto) 3.2 (1.6-8.3) # Lymph # (Auto) 2.2 (0.6-5.0) # Nolan # (Auto) 0.4 (0.0-1.3) # Eos # (Auto) 0.3 (0.0-0.8) # Baso # (Auto) 0.0 (0.0-0.2) # PT 9.3 (9.0-11.1) sec INR 0.96 L (1.00-1.24) APTT 26.5 (24.4-33.2) SECONDS D-Dimer, Quantitative 1.08 H (0.0-0.59) mg/LFEU Sodium 141 (135-145) mmol/L Potassium 3.6 (3.5-5.3) mmol/L Chloride 104 (100-110) mmol/L Carbon Dioxide 28 (21-32) mmol/L BUN 5 L (7-18) mg/dL Creatinine 0.9 (0.70-1.30) mg/dL Est Cr Clr Drug Dosing 89.52 mL/min Estimated GFR (MDRD) > 60 (>60) BUN/Creatinine Ratio 5.6 L (9-20) Glucose 94 (80-116) mg/dL Calcium 8.7 (8.6-10.2) mg/dL Total Bilirubin 0.2 (0.1-1.3) mg/dL AST 13 D (5-25) IU/L ALT 14 (12-36) U/L Alkaline Phosphatase 61 (56-112) IU/L Troponin I (4.0-60.3) pg/mL Total Protein 7.1 (6.0-8.0) g/dL Albumin 3.4 L (3.5-5.2) g/dL Globulin 3.7 g/dL Albumin/Globulin Ratio 0.9 04/30/19 04/30/19 Range/Units 08:25 10:42 WBC (4.5-12.0) X10-3/uL RBC (4.30-5.75) x10(6)uL Hgb (13.5-17.8) g/dL Hct (30.0-51.3) % MCV (80-96) fL MCH (27.7-33.6) pg MCHC (32.2-35.4) g/dL RDW (11.5-15.5) % Plt Count (125-369) X10(3)uL MPV (7.4-10.4) fL Neut % (Auto) (46-82) % Lymph % (Auto) (13-37) % Nolan % (Auto) (4-12) % Eos % (Auto) (1.0-5.0) % Baso % (Auto) (0-2) % Neut # (Auto) (1.6-8.3) # Lymph # (Auto) (0.6-5.0) # Nolan # (Auto) (0.0-1.3) # Eos # (Auto) (0.0-0.8) # Baso # (Auto) (0.0-0.2) # PT (9.0-11.1) sec INR (1.00-1.24) APTT (24.4-33.2) SECONDS D-Dimer, Quantitative (0.0-0.59) mg/LFEU Sodium (135-145) mmol/L Potassium (3.5-5.3) mmol/L Chloride (100-110) mmol/L Carbon Dioxide (21-32) mmol/L BUN (7-18) mg/dL Creatinine (0.70-1.30) mg/dL Est Cr Clr Drug Dosing mL/min Estimated GFR (MDRD) (>60) BUN/Creatinine Ratio (9-20) Glucose (80-116) mg/dL Calcium (8.6-10.2) mg/dL Total Bilirubin (0.1-1.3) mg/dL AST (5-25) IU/L ALT (12-36) U/L Alkaline Phosphatase (56-112) IU/L Troponin I 5.0 5.7 (4.0-60.3) pg/mL Total Protein (6.0-8.0) g/dL Albumin (3.5-5.2) g/dL Globulin g/dL Albumin/Globulin Ratio Meds: Medications Generic Name Dose Route Start Last Admin Trade Name Serafinq PRN Reason Stop Dose Admin Heparin Sodium/Sodium Chloride 500 mls @ 16 mls/hr 04/30/19 12:00 04/30/19 12 :12 Heparin 25,000 Units In 1/2 Ns 500 Ml IV 16 mls/hr ASDIRECTED RENAY Administration Sodium Chloride 10 ml 04/30/19 08:19 04/30/19 07:50 Saline Flush FLUSH 10 ml ASDIRECTED PRN Administration Keep Vein Open Discontinued Medications Generic Name Dose Route Start Last Admin Trade Name Luca PRN Reason Stop Dose Admin Albuterol/Ipratropium 3 ml 04/30/19 09:41 04/30/19 09:44 Duoneb 3.0-0.5 Mg/3 Ml NEB 04/30/19 09:42 3 ml ONETIME ONE Administration Aspirin 324 mg 04/30/19 08:19 04/30/19 08:30 Aspirin PO 04/30/19 08:20 324 mg ONETIME ONE Administration Heparin Sodium (Porcine) 3,350 units 04/30/19 11:54 04/30/19 12:13 Heparin Sodium IVPUSH 04/30/19 11:55 3,350 units ONETIME ONE Administration Iopamidol 100 ml 04/30/19 09:33 04/30/19 09:34 Isovue-370 (76%) IV 04/30/19 09:34 80 ml ONETIME ONE Administration Morphine Sulfate 2 mg 04/30/19 11:58 04/30/19 12:09 Morphine IVPUSH 04/30/19 11:59 2 mg ONETIME ONE Administration Nitroglycerin 0.4 mg 04/30/19 08:19 04/30/19 08:40 Nitrostat SL 0.4 mg Q5M PRN Administration Chest Pain - Radiology Interpretation Free Text/Narrative:: CTA Chest: No pulmonary embolism or aortic dissection. ([facility], Dr. Amaya) - Re-Assessments/Exams Free Text/Narrative Re-Assessment/Exam: 04/30/19 10:42 Chest pain improved from 6/10 to 1/10 after NTG SL x 3. Patient then complained of chest tightness, which resolved after DuoNeb. 04/30/19 11:52 Dr. Hoyos accepts patient for transfer to [facility], recommends Heparin per [facility] protocol. Departure - Departure Time of Disposition: 12:20 Disposition: DC/Tfer to [facility] 02 Reason for Transfer *Q: Other Condition: Fair Clinical Impression: Unstable angina Referrals: Alexandre Brady MD [Primary Care Provider] - Forms: ED Department Discharge Sepsis Event Note - Evaluation Sepsis Screening Result: No Definite Risk - Focused Exam Vital Signs: Vital Signs Temp Pulse Resp BP BP Pulse Ox 04/30/19 10:39 59 L 13 113/68 98 04/30/19 08:40 117/72 04/30/19 08:35 124/82 04/30/19 08:30 144/83 H 04/30/19 07:45 36.1 C 73 13 141/105 H 100 Date Exam was Performed: 04/30/19 Time Exam was Performed: 12:20 - My Orders Last 24 Hours: My Active Orders 04/30/19 08:15 EKG 12 Lead [EK] Stat 04/30/19 08:16 EKG Documentation Completion [RC] ASDIRECTED CXR [Chest 1V Frontal] [CR] Stat 04/30/19 08:19 Sodium Chloride 0.9% [Saline Flush] 10 ml FLUSH ASDIRECTED PRN Saline Lock Insert [OM.PC] Routine 04/30/19 08:59 Ang Chest [CT] Stat 04/30/19 09:41 RT Aerosol Therapy [RC] ASDIRECTED 04/30/19 12:00 Heparin Sodium/0.45% NaCl [Heparin 25,000 Units in 1/2 NS 500 ML] 500 ml IV ASDIRECTED - Assessment/Plan Last 24 Hours: My Active Orders 04/30/19 08:15 EKG 12 Lead [EK] Stat 04/30/19 08:16 EKG Documentation Completion [RC] ASDIRECTED CXR [Chest 1V Frontal] [CR] Stat 04/30/19 08:19 Sodium Chloride 0.9% [Saline Flush] 10 ml FLUSH ASDIRECTED PRN Saline Lock Insert [OM.PC] Routine 04/30/19 08:59 Ang Chest [CT] Stat 04/30/19 09:41 RT Aerosol Therapy [RC] ASDIRECTED 04/30/19 12:00 Heparin Sodium/0.45% NaCl [Heparin 25,000 Units in 1/2 NS 500 ML] 500 ml IV ASDIRECTED
[2019-04-30] MEDS: Nitroglycerin 0.4 MG Tab.SL SL PRN ×3 (08:30→08:40)
[2019-04-30] MEDS ORDERED: Iopamidol 755 Mg/ML 100 ML Bottle IV ONE (09:33)
[2019-04-30] MEDS ORDERED: Albuterol/Ipratropium 3.0-0.5 MG/3 ML Neb Soln NEB ONE (09:41)
[2019-04-30] MEDS ORDERED: Heparin Sodium 5,000 Units/ML Vial IVPUSH ONE (11:54)
[2019-04-30] MEDS ORDERED: Morphine 2 MG/ML Syringe IVPUSH ONE (11:58)
[2019-04-30] MEDS ORDERED: Heparin Sodium/0.45% NaCl 500 ML IV SCH (12:00)
[2019-04-30 16:48] VITALS: BP 121/73; PULSE 56
== END 2019-04-30 12:30 ==
LOC: FB.ED 07:45
DX: I25.110 Atherosclerotic heart disease of native coronary artery with unstable angina pectoris (principal); I25.2 Old myocardial infarction; F17.210 Nicotine dependence, cigarettes, uncomplicated; E78.00 Pure hypercholesterolemia, unspecified; I10 Essential (primary) hypertension; Z79.01 Long term (current) use of anticoagulants; Z79.899 Other long term (current) drug therapy; Z79.82 Long term (current) use of aspirin
CPT/HCPCS: 36415; 71275; 80053; 84484; 85025; 85379; 85610; 85730; 93005; 94640; 96365; 96375; 99285; A9270; J1644; J2270; Q9967; J7620-GY

== ENCOUNTER 2022-12-04 16:33 | Emergency (ER) | payer MEDICAID ==
[2022-12-04] MEDS ORDERED: Nitroglycerin 0.4 MG Tab.SL SL PRN (16:52)
[2022-12-04] MEDS ORDERED: Aspirin 81 MG Tab.Chew PO ONE ×2 (16:52→17:16)
[2022-12-04 17:00] LABS: HEMATOCRIT 37.5 % (38.3-50.1); HEMOGLOBIN 13.2 g/dL (12.9-17.7); MEAN CORPUSCULAR HEMOGLOBIN 30.8 pg (27.0-33.3); MEAN CORPUSCULAR HGB CONC 35.1 g/dL (28.7-35.3); MEAN CORPUSCULAR VOLUME 87.7 fL (80.8-98.7); MEAN PLATELET VOLUME 7.2 fL (6.7-11.0); PLATELET COUNT,PLT 362 x10(3)uL (117-477); RED BLOOD CELL COUNT 4.27 x10(6)uL (3.90-5.90); RED CELL DISTRIBUTION WIDTH 13.3 % (12.4-15.0); WHITE BLOOD CELL COUNT,WBC 15.3 x10-3/uL (3.2-10.1)
[2022-12-04 17:04] LABS: BLOOD UREA NITROGEN,BUN 8 mg/dL (7-18); BUN/CREATININE RATIO 8.9 (9-20); CALCIUM 8.5 mg/dL (8.6-10.2); CARBON DIOXIDE,CO2 30 mmol/L (21-32); CHLORIDE,CL 104 mmol/L (100-110); CREATININE 0.9 mg/dL (0.70-1.30); EST CRCL DRUG DOSING (CG) 94.67 mL/min; ESTIMATED GFR 100 mL/min (>60); GLUCOSE RANDOM 87 mg/dL (80-116); POTASSIUM,K 3.3 mmol/L (3.5-5.3); SODIUM,NA 140 mmol/L (135-145)
[2022-12-04 17:10] LABS: A/G RATIO 1.1; ALANINE AMINOTRANSFERASE,ALT 24 U/L (12-36); ALBUMIN 3.4 g/dL (3.5-5.2); ALKALINE PHOSPHATASE 64 IU/L (56-112); ASPARTATE AMNIOTRANSFERASE,AST 25 IU/L (5-25); BILIRUBIN TOTAL 0.4 mg/dL (0.1-1.3); PROTEIN TOTAL,TP 6.5 g/dL (6.0-8.0)
[2022-12-04 17:15] LABS: BAND PERCENT MAN 1 % (0-6); EOSINOPHILS PERCENT MAN 1 % (0-5); LYMPHOCYTES PERCENT MAN 14 % (13-37); MONOCYTES PERCENT MAN 7 % (4-12); SEG NEUTROPHILS PERCENT MAN 77 % (46-82)
[2022-12-04 17:16] LABS: TROPONIN I 12.4 pg/mL (4.0-60.3)
[2022-12-04 17:20] LABS: INR 0.96 (1.00-1.24); PROTHROMBIN TIME 9.9 sec (9.0-11.1); PTT,PARTIAL THROMBOPLSTIN TIME 26.6 SECONDS (24.4-33.2)
[2022-12-04 18:03] VITALS: BP 132/88; PULSE 66
== END 2022-12-04 18:00 | disposition home or self-care (01) ==
LOC: FB.ED 16:33
DX: I25.10 Atherosclerotic heart disease of native coronary artery without angina pectoris (principal); J44.1 Chronic obstructive pulmonary disease with (acute) exacerbation; R09.1 Pleurisy; I25.2 Old myocardial infarction; I10 Essential (primary) hypertension; E78.00 Pure hypercholesterolemia, unspecified; Z72.0 Tobacco use; Z95.5 Presence of coronary angioplasty implant and graft; Z91.030 Bee allergy status; Z79.899 Other long term (current) drug therapy
CPT/HCPCS: 36415; 71045; 80053; 83880; 84484; 85025; 85610; 85730; 93005; 93010; 99283; 99285; A9270